=== PATIENT | male | born 1990 | race Caucasian/White ===

== ENCOUNTER 2018-09-09 17:21 | Emergency (ER) | payer BC ==
[2018-09-09 17:56] VITALS: BP 133/60
--- NOTE | 2018-09-09 18:55 | UC ---
Skin Complaint HPI - HPI Summary HPI Summary: 28 y/o male presents to the urgent care c/o C/O TICK BITE TO RIGHT RIB AREA 2 DAYS AGO. PT REMOVED TICK BUT STATES HE NOW HAS A RASH IN THE AREA OF THE BITE. + ITCHING. - History of Current Complaint Chief Complaint: UCSkin Time Seen by Provider: 09/09/18 18:49 Stated Complaint: TICK BITE Hx Obtained From: Patient Onset/Duration: Sudden Onset, Lasting Days - 3 days, Still Present Skin Exposure Onset/Duration: Days Ago - 3 days Timing: Constant Onset Severity: Mild Current Severity: Mild Pain Intensity: 0 Pain Scale Used: 0-10 Numeric Location: Discrete - RUQ abdomen w/ tick bite. Pt removed tick Character: Pruritus, Redness Aggravating Factor(s): Touch Alleviating Factor(s): Nothing Associated Signs & Symptoms: Positive: Rash - tik bite in the RUQ. Negative: Fever, Chills, Drainage, Tenderness Related History: Possible Reaction to: Insect - Allergy/Home Medications Allergies/Adverse Reactions: Allergies Allergy/AdvReac Type Severity Reaction Status Date / Time No Known Allergies Allergy Verified 09/09/18 17:56 Home Medications: Home Medications Topical Eczema Adams* 09/09/18 [History] PMH/Surg Hx/FS Hx/Imm Hx - Surgical History Surgical History: None - Social History Alcohol Use: None Substance Use Type: None Smoking Status (MU): Never Smoked Tobacco Physical Exam - Summary Physical Exam Summary: Vital Signs Reviewed: Yes General: well developed, well nourished male sitting in the examining table w/o any apparent distress. Eyes: Positive: Conjunctiva Clear - PERRLA, EOMI ENT: Positive: Normal ENT inspection, Hearing grossly normal, Pharynx normal, TMs normal Neck: Positive: Supple, Nontender, No Lymphadenopathy Respiratory: Positive: Chest nontender, Lungs clear, Normal breath sounds Cardiovascular: Positive: RRR, No Murmur, Pulses Normal Abdomen Description: Positive: Nontender, No Organomegaly, Soft. Negative: CVA Tenderness (R), CVA Tenderness (L) Bowel Sounds: Positive: Present Musculoskeletal: Positive: Strength Intact, ROM Intact, No Edema Neurological Exam: Normal Psychological Exam: Normal Skin: Positive: rashes - RT upper quadrant abdomen with tick bite with surrounding erythema, non tender to palpation. tick no longer present, no swelling or drainage observed. Triage Information Reviewed: Yes Vital Signs: Initial Vital Signs Temp 97.9 F 09/09/18 17:53 Pulse 84 09/09/18 17:53 Resp 16 09/09/18 17:53 BP 133/60 09/09/18 17:53 Pulse Ox 100 09/09/18 17:53 Course/Dx - Course Course Of Treatment: Pt w/ RT upper quadrant abdomen with tick bite with surrounding erythema, non tender to palpation. tick no longer present, no swelling or drainage observed. - Differential Diagnoses - Skin Complaint Differential Diagnoses: Abscess, Local Allergic Reaction, Poison Sadie, Tick Born Illness, Varicella Zoster - Diagnoses Provider Diagnosis: Tick bite of abdomen Discharge - Sign-Out/Discharge Documenting (check all that apply): Patient Departure - d/C home All imaging exams completed and their final reports reviewed: No Studies - Discharge Plan Condition: Stable Disposition: HOME Patient Education Materials: Tick Bite (ED) [facility] [facility] - [facility] [Outside] - 2 Weeks Murray VARGAS,Robert Moore [Medical Doctor] - If Needed Additional Instructions: 1- Please observe the area for the development or Erythema Migrans for up to 30 days following exposure. Components of the tick saliva can cause transient erythema that should not be confused with Erythema Migrans. If you develop the bull's eye rash, fever, joint pains please return to the urgent care or f/u with your PCP for further management. 2-Antibiotic prophylaxis with Doxycycline was given to you today to prevent lyme Disease. Lyme serology can be drawn in 2 weeks with your PCP or Dr Gao who specializes in Lyme disease to r/o Lyme disease since there is probability of negative results at early exposure. - Billing Disposition and Condition Condition: STABLE Disposition: Home
[2018-09-09] MEDS ORDERED: DOXYcycline CAP(*) 100 MG PO ONE (19:21)
== END 2018-09-09 19:30 | disposition home or self-care (01) ==
LOC: UCEAST 17:21
DX: S30.861A Insect bite (nonvenomous) of abdominal wall, initial encounter (principal); R21 Rash and other nonspecific skin eruption; W57.XXXA Bitten or stung by nonvenomous insect and other nonvenomous arthropods, initial encounter; Y92.9 Unspecified place or not applicable
CPT/HCPCS: 99212; A9270-GY; G0463